=== PATIENT | female | born 2005 | race Caucasian/White ===

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

== ENCOUNTER 2023-02-10 23:07 | Emergency (ER) | payer SELFPAY ==
[~2023-02-10] VITALS: Ht 160 cm; Wt 91.0 kg
[2023-02-10] MEDS ORDERED: KETOROLAC TROMETH 60MG/2ML VIAL IM ONE (23:30)
[2023-02-10 23:53] LABS: Eosinophils # (auto) 0.1 10 ^3/uL (0-0.8); Hemoglobin 11.9 g/dL (12.2-16.2); Lymphocytes # (auto) 2.9 10 ^3/uL (0.4-5.4); Monocytes # (auto) 0.5 10 ^3/uL (0-1.3); Neutrophils % (auto) 46.6 % (37.0-80.0); Nucleated Red Blood Cells % 0.1 %
[2023-02-10 23:55] LABS: Basophils # (auto) 0 10 ^3/uL (0-0.2); Basophils % (auto) 0.7 % (0.0-2.0); Eosinophils % (auto) 0.9 % (0.0-7.0); Hematocrit 34.8 % (36.0-46.0); Lymphocytes % (auto) 44.8 % (10.0-50.0); Mean Corpuscular Hemoglobin 25.9 pg (28.0-32.0); Mean Corpuscular Hgb Conc. 34.2 g/dL (32.0-36.0); Mean Corpuscular Volume 75.8 fL (80.0-100.0); Neutrophils # (auto) 3.1 10 ^3/uL (1.6-8.6); Red Blood Cells 4.59 10^6/uL (4.0-5.20); Red Cell Distribution Width 14.9 % (11.8-14.3); White Blood Cell 6.6 10^3/uL (4.4-10.8)
[2023-02-11 00:02] LABS: Albumin 3.6 g/dL (3.4-5.0); BUN/Creatinine Ratio 15.1 (10.0-20.0); Potassium 3.7 mmol/L (3.5-5.1)
[2023-02-11 00:04] LABS: Bilirubin, Total 0.2 mg/dL (0.2-1.0); Total Protein 8.2 g/dL (6.4-8.2)
[2023-02-11 02:40] VITALS: BP 123/78
[2023-02-11 02:57] LABS: Urine Bacteria NONE SEEN /hpf (None Seen); Urine Blood Negative /uL (Negative); Urine Specific Gravity 1.015 (1.001-1.035); Urine WBC 1 /hpf (0 - 5)
[2023-02-11] MEDS ORDERED: IBUP800T27 PO (03:05)
== END 2023-02-11 03:18 | disposition home or self-care (01) ==
LOC: ER 23:07
DX: R07.89 Other chest pain (principal)
CPT/HCPCS: 36415; 71046; 80053; 81001; 81025; 83880; 84484; 85025; 93005; 96372; 99285; J1885